=== PATIENT | female | born 1975 | race Caucasian/White ===

== ENCOUNTER 2017-11-29 15:03 | Emergency (ER) | payer MEDICAID ==
[~2017-11-29] VITALS: Ht 157.5 cm; Wt 73.0 kg
[2017-11-29] MEDS ORDERED: CLON0.1T PO (15:20)
[2017-11-29] MEDS ORDERED: HYDROCODONE/ACETAMINOPHEN 5/325MG TABLET PO ONE (16:00)
[2017-11-29 16:40] VITALS: BP 118/67
== END 2017-11-29 16:40 | disposition home or self-care (01) ==
LOC: ER 15:16
DX: M25.561 Pain in right knee (principal); I10 Essential (primary) hypertension
CPT/HCPCS: 99283; Z7610

== ENCOUNTER 2019-09-01 11:46 | Emergency (ER) | payer MEDICAID ==
[~2019-09-01] VITALS: Ht 167.6 cm; Wt 65.0 kg
[~2019-09-01 11:46] MED LIST: CLON0.1T PO
[2019-09-01 22:42] LABS: BASOPHILS % 0.5 % (0.0-2.0); EOSINOPHILS % 0.1 % (0.0-5.0); HEMATOCRIT. 31.3 % (36.0-48.0); HEMOGLOBIN. 10.1 g/dL (12.0-16.0); LYMPHOCYTES % 23.7 % (20.0-50.0); MEAN CORPUSCULAR HEMOGLOBIN 25.6 pg (28.0-32.0); MEAN CORPUSCULAR VOLUME 79.6 fL (81.0-99.0); MEAN PLATELET VOLUME 7.9 fl (7.4-10.4); MONOCYTES % 8.6 % (2.0-8.0); NEUTROPHILS % 67.1 % (40.0-76.0); PLATELET 256 x1000/uL (130-400); RED BLOOD CELL COUNT 3.93 mill/uL (4.2-5.4); RED CELL DISTRIBUTION WIDTH 19.9 % (11.6-14.6)
[2019-09-01 22:50] LABS: CLARITY URINE CLEAR (CLEAR); COLOR URINE YELLOW (YELLOW); KETONES URINE NEGATIVE (NEGATIVE); LEUKOCYTE ESTERASE URINE 1+ (NEGATIVE); NITRITE URINE NEGATIVE (NEGATIVE); OCCULT BLOOD URINE 3+ (NEGATIVE); PROTEIN URINE NEGATIVE (NEGATIVE); SPECIFIC GRAVITY URINE 1.008 (1.005-1.030); UROBILINOGEN URINE 0.2 E.U./dL (0.2-1.0)
[2019-09-02] MEDS ORDERED: CLONAZEPAM 1MG TABLET PO ONE (08:15)
[2019-09-02 12:01] VITALS: BP 132/78
== END 2019-09-02 12:00 | disposition home or self-care (01) ==
LOC: ER 11:46
DX: N93.8 Other specified abnormal uterine and vaginal bleeding (principal); M54.9 Dorsalgia, unspecified; R03.0 Elevated blood-pressure reading, without diagnosis of hypertension; Z59.0 Homelessness; Z87.39 Personal history of other diseases of the musculoskeletal system and connective tissue
CPT/HCPCS: 36415; 81003; 81025; 85025; 99283; Z7610

== ENCOUNTER 2020-05-13 14:20 | Emergency (ER) | payer MEDICAID ==
[~2020-05-13] VITALS: Ht 162.6 cm; Wt 55.0 kg
[2020-05-13] MEDS ORDERED: DIPHENHYDRAMINE 50MG/ML VIAL IM STA (14:53)
[2020-05-13] MEDS ORDERED: DIPHENHYDRAMINE 50MG/ML VIAL ONE (14:56)
[2020-05-13] MEDS ORDERED: HALOPERIDOL LACTATE 5MG/ML VIAL IM ONE ×2 (14:57→15:00)
[2020-05-13] MEDS ORDERED: LORAZEPAM 2MG/ML CPJ ONE (14:58)
[2020-05-13] MEDS ORDERED: LORAZEPAM 2MG/ML CPJ IM PRN ×2 (15:00→15:15)
[2020-05-13 15:47] LABS: BASOPHILS % 1.1 % (0.0-2.0); EOSINOPHILS % 3.7 % (0.0-5.0); HEMATOCRIT. 29.3 % (36.0-48.0); HEMOGLOBIN. 9.2 g/dL (12.0-16.0); LYMPHOCYTES % 36.3 % (20.0-50.0); MEAN CORPUSCULAR HEMOGLOBIN 23.2 pg (28.0-32.0); MEAN CORPUSCULAR VOLUME 73.9 fL (81.0-99.0); MEAN PLATELET VOLUME 7.8 fl (7.4-10.4); MONOCYTES % 10.7 % (2.0-8.0); NEUTROPHILS % 48.2 % (40.0-76.0); PLATELET 391 x1000/uL (130-400); RED BLOOD CELL COUNT 3.96 mill/uL (4.2-5.4); RED CELL DISTRIBUTION WIDTH 20.9 % (11.6-14.6)
[2020-05-13 15:51] LABS: CHLORIDE 109 mEq/L (98-107)
[2020-05-13 15:54] LABS: ETHANOL BLOOD 295 mg/dL
[2020-05-13 16:07] LABS: HCG SCREEN NEGATIVE
[2020-05-13 16:19] LABS: PROTHROMBIN TIME 10.2 sec (9.6-11.0)
[2020-05-13 17:38] LABS: CLARITY URINE CLEAR (CLEAR); COLOR URINE YELLOW (YELLOW); KETONES URINE NEGATIVE (NEGATIVE); LEUKOCYTE ESTERASE URINE 1+ (NEGATIVE); NITRITE URINE NEGATIVE (NEGATIVE); OCCULT BLOOD URINE NEGATIVE (NEGATIVE); PROTEIN URINE 1+ (NEGATIVE); SPECIFIC GRAVITY URINE 1.015 (1.005-1.030)
[2020-05-13 17:51] LABS: *BARBITURATES SCREEN URINE NEGATIVE (NEGATIVE); METHADONE URINE SCREEN NEGATIVE (NEGATIVE)
[2020-05-13 17:52] LABS: CANNABINOID URINE SCREEN NEGATIVE (NEGATIVE); OPIATES URINE SCREEN NEGATIVE (NEGATIVE); PHENCYCLIDINE URINE SCREEN NEGATIVE (NEGATIVE)
[2020-05-13 17:54] LABS: *AMPHETAMINES SCREEN URINE PRESUMTIVE POSITIVE (NEGATIVE); *BENZODIAZEPINES SCREEN URINE PRESUMTIVE POSITIVE (NEGATIVE); *COCAINE SCREEN URINE PRESUMTIVE POSITIVE (NEGATIVE)
[2020-05-13] MEDS ORDERED: KCL 20MEQ/100ML PREMIX 100 ML IV ONE (18:00)
[2020-05-13] MEDS ORDERED: SODIUM CHLORIDE 0.9% 1,000 ML IV ONE (18:00)
[2020-05-13 23:37] LABS: CHLORIDE 111 mEq/L (98-107)
[2020-05-13 23:41] LABS: ETHANOL BLOOD 73 mg/dL
[2020-05-14] MEDS ORDERED: KCL 20MEQ/100ML PREMIX 100 ML IV NR (03:00)
[2020-05-14] MEDS ORDERED: ACETAMINOPHEN 325MG TABLET PO ONE (15:00)
[2020-05-14 15:09] VITALS: BP 121/81
== END 2020-05-14 15:32 | disposition home or self-care (01) ==
LOC: ER 14:20
DX: F14.188 Cocaine abuse with other cocaine-induced disorder (principal); F15.188 Other stimulant abuse with other stimulant-induced disorder; F16.188 Hallucinogen abuse with other hallucinogen-induced disorder; Z11.59 Encounter for screening for other viral diseases; F10.129 Alcohol abuse with intoxication, unspecified; Y90.8 Blood alcohol level of 240 mg/100 ml or more; F91.8 Other conduct disorders; E87.6 Hypokalemia; E87.2 Acidosis; R45.1 Restlessness and agitation; Z98.84 Bariatric surgery status; Z59.0 Homelessness
CPT/HCPCS: 36415; 70450; 80053; 80305; 80320; 80329; 81003; 82140; 82962; 83605; 83690; 84443; 84703; 85025; 85610; 87635; 93005; 96361; 96365; 96366; 96367; 96372; 99285; C9803; J1200; J1630; J2060; J3480; J7030; G0480

== ENCOUNTER 2021-05-28 11:22 | Emergency (ER) | payer MEDICAID | END 2021-05-28 12:49 | disposition left against medical advice (07) | LOC: ER 12:02 | DX: Z76.0 Encounter for issue of repeat prescription (principal); Z53.21 Procedure and treatment not carried out due to patient leaving prior to being seen by health care provider ==

== ENCOUNTER 2021-05-28 13:07 | Emergency (ER) | payer MEDICAID ==
[~2021-05-28] VITALS: Ht 160 cm; Wt 60.0 kg
[2021-05-28 13:24] VITALS: BP 107/71
[2021-05-28] MEDS ORDERED: ACETAMINOPHEN 325MG TABLET PO STA (14:23)
== END 2021-05-28 16:25 | disposition left against medical advice (07) ==
LOC: ER 13:33
DX: F19.10 Other psychoactive substance abuse, uncomplicated (principal); F41.9 Anxiety disorder, unspecified; F20.9 Schizophrenia, unspecified; F10.229 Alcohol dependence with intoxication, unspecified; Y90.0 Blood alcohol level of less than 20 mg/100 ml
CPT/HCPCS: 99282

== ENCOUNTER 2021-06-08 07:50 | Emergency (ER) | payer MEDICAID ==
[~2021-06-08] VITALS: Ht 157.5 cm; Wt 50.0 kg
[2021-06-08 09:17] LABS: BASOPHILS % 1.1 % (0.0-2.0); EOSINOPHILS % 4.6 % (0.0-5.0); HEMATOCRIT. 36.7 % (36.0-48.0); HEMOGLOBIN. 11.6 g/dL (12.0-16.0); LYMPHOCYTES % 26.7 % (20.0-50.0); MEAN CORPUSCULAR VOLUME 91.7 fL (81.0-99.0); MEAN PLATELET VOLUME 7.7 fl (7.4-10.4); MONOCYTES % 13.3 % (2.0-8.0); NEUTROPHILS % 54.3 % (40.0-76.0); PLATELET 311 x1000/uL (130-400); RED BLOOD CELL COUNT 4.01 mill/uL (4.2-5.4); RED CELL DISTRIBUTION WIDTH 17.3 % (11.6-14.6)
[2021-06-08 09:26] LABS: CHLORIDE 113 mEq/L (98-107)
[2021-06-08 09:30] LABS: ETHANOL BLOOD 102 mg/dL
[2021-06-08 10:15] VITALS: BP 105/89
== END 2021-06-08 11:37 | disposition home or self-care (01) ==
LOC: ER 07:59
DX: F10.229 Alcohol dependence with intoxication, unspecified (principal); Y90.8 Blood alcohol level of 240 mg/100 ml or more; R03.0 Elevated blood-pressure reading, without diagnosis of hypertension; E03.9 Hypothyroidism, unspecified; F20.89 Other schizophrenia; Z91.81 History of falling
CPT/HCPCS: 36415; 80053; 80320; 85025; 99284; G0480

== ENCOUNTER 2021-06-18 20:11 | Emergency (ER) | payer MEDICAID ==
[~2021-06-18] VITALS: Ht 167.6 cm; Wt 73.0 kg
[2021-06-18 23:20] LABS: EOSINOPHILS % 2.9 % (0.0-5.0); HEMATOCRIT. 39.7 % (36.0-48.0); HEMOGLOBIN. 12.5 g/dL (12.0-16.0); LYMPHOCYTES % 37.9 % (20.0-50.0); MEAN CORPUSCULAR HEMOGLOBIN 28.9 pg (28.0-32.0); MEAN CORPUSCULAR VOLUME 91.7 fL (81.0-99.0); MEAN PLATELET VOLUME 8.1 fl (7.4-10.4); MONOCYTES % 13.5 % (2.0-8.0); NEUTROPHILS % 44.7 % (40.0-76.0); PLATELET 244 x1000/uL (130-400); RED BLOOD CELL COUNT 4.33 mill/uL (4.2-5.4); RED CELL DISTRIBUTION WIDTH 17.2 % (11.6-14.6)
[2021-06-18 23:26] LABS: CHLORIDE 106 mEq/L (98-107)
[2021-06-18 23:30] LABS: ETHANOL BLOOD 210 mg/dL
[2021-06-18 23:36] LABS: CLARITY URINE CLEAR (CLEAR); COLOR URINE YELLOW (YELLOW); KETONES URINE NEGATIVE (NEGATIVE); LEUKOCYTE ESTERASE URINE TRACE (NEGATIVE); NITRITE URINE NEGATIVE (NEGATIVE); OCCULT BLOOD URINE NEGATIVE (NEGATIVE); PH URINE 7.5 (4.5-8.0); PROTEIN URINE NEGATIVE (NEGATIVE); SPECIFIC GRAVITY URINE 1.009 (1.005-1.030); UROBILINOGEN URINE 0.2 E.U./dL (0.2-1.0)
[2021-06-18 23:53] LABS: *BARBITURATES SCREEN URINE NEGATIVE (NEGATIVE); *BENZODIAZEPINES SCREEN URINE NEGATIVE (NEGATIVE); *COCAINE SCREEN URINE NEGATIVE (NEGATIVE); CANNABINOID URINE SCREEN NEGATIVE (NEGATIVE); METHADONE URINE SCREEN NEGATIVE (NEGATIVE); OPIATES URINE SCREEN NEGATIVE (NEGATIVE); PHENCYCLIDINE URINE SCREEN NEGATIVE (NEGATIVE)
[2021-06-19 00:08] LABS: *AMPHETAMINES SCREEN URINE PRESUMTIVE POSITIVE (NEGATIVE)
[2021-06-19 00:42] LABS: HCG SCREEN NEGATIVE
[2021-06-19] MEDS ORDERED: LORAZEPAM 0.5MG TABLET PO ONE (02:30)
[2021-06-19] MEDS: SERTRALINE HCL 50MG TABLET PO SCH (09:33)
[2021-06-19] MEDS: OLANZAPINE 5MG TABLET PO SCH ×2 (09:33→18:56)
[2021-06-19] MEDS ORDERED: LORAZEPAM 1MG TABLET PO ONE (18:30)
[2021-06-20] MEDS ORDERED: LORAZEPAM 1MG TABLET PO ONE (08:45)
[2021-06-20] MEDS: OLANZAPINE 5MG TABLET PO SCH ×2 (08:46→19:16)
[2021-06-20] MEDS ORDERED: IBUPROFEN 400MG TABLET PO ONE (10:15)
[2021-06-20] MEDS: SERTRALINE HCL 50MG TABLET PO SCH (15:55)
[2021-06-21 04:17] VITALS: BP 119/65
== END 2021-06-21 04:34 ==
LOC: ER 20:11
DX: R45.851 Suicidal ideations (principal); F15.10 Other stimulant abuse, uncomplicated; F10.10 Alcohol abuse, uncomplicated; F43.21 Adjustment disorder with depressed mood; R45.1 Restlessness and agitation; F20.9 Schizophrenia, unspecified; Z20.822 Contact with and (suspected) exposure to COVID-19; Y90.7 Blood alcohol level of 200-239 mg/100 ml; S00.432A Contusion of left ear, initial encounter; X58.XXXA Exposure to other specified factors, initial encounter; Y93.89 Activity, other specified; Y92.89 Other specified places as the place of occurrence of the external cause; Z75.1 Person awaiting admission to adequate facility elsewhere; Z59.00 Homelessness unspecified
CPT/HCPCS: 36415; 80053; 80305; 80320; 81003; 82962; 85025; 99285; G0480

== ENCOUNTER 2022-07-07 17:38 | Inpatient (IN) | payer MEDICAID ==
[~2022-07-07] VITALS: Ht 160 cm; Wt 63.5 kg
[2022-07-07] MEDS ORDERED: LORAZEPAM 1MG TABLET PO ONE (19:15)
[2022-07-07 19:54] LABS: *AMPHETAMINES SCREEN URINE NEGATIVE (NEGATIVE); *BARBITURATES SCREEN URINE NEGATIVE (NEGATIVE); *BENZODIAZEPINES SCREEN URINE NEGATIVE (NEGATIVE); *COCAINE SCREEN URINE NEGATIVE (NEGATIVE); CANNABINOID URINE SCREEN NEGATIVE (NEGATIVE); METHADONE URINE SCREEN NEGATIVE (NEGATIVE); OPIATES URINE SCREEN NEGATIVE (NEGATIVE); PHENCYCLIDINE URINE SCREEN NEGATIVE (NEGATIVE)
[2022-07-07 20:20] LABS: BASOPHILS % 0.4 % (0.0-2.0); EOSINOPHILS % 2.3 % (0.0-5.0); HEMATOCRIT. 33.5 % (36.0-48.0); HEMOGLOBIN. 10.7 g/dL (12.0-16.0); LYMPHOCYTES % 37.1 % (20.0-50.0); MEAN CORPUSCULAR HEMOGLOBIN 27.1 pg (28.0-32.0); MEAN CORPUSCULAR VOLUME 85.1 fL (81.0-99.0); MEAN PLATELET VOLUME 8.9 fl (7.4-10.4); NEUTROPHILS % 48.2 % (40.0-76.0); PLATELET 302 x1000/uL (130-400); RED BLOOD CELL COUNT 3.94 mill/uL (4.2-5.4); RED CELL DISTRIBUTION WIDTH 20.9 % (11.6-14.6)
[2022-07-07 20:34] LABS: HCG SCREEN NEGATIVE
[2022-07-07 20:38] LABS: CHLORIDE 107 mEq/L (98-107)
[2022-07-07 20:55] LABS: ETHANOL BLOOD < 10 mg/dL
[2022-07-07] MEDS ORDERED: CEFTRIAXONE 1 G PREMIX 50 ML IV ONE (23:45)
[2022-07-07] MEDS ORDERED: METRONIDAZOLE 500 MG PREMIX 100 ML IV ONE (23:45)
[2022-07-08] MEDS ORDERED: ACETAMINOPHEN 325MG TABLET PO ONE (00:30)
[2022-07-08] MEDS ORDERED: LORAZEPAM 1MG TABLET PO ONE (08:30)
[2022-07-08] MEDS ORDERED: CLONIDINE 0.1MG TABLET PO PRN (17:00)
[2022-07-08] MEDS: DEXT 5%/0.45% NACL 1000ML 1,000 ML IV SCH (18:34)
[2022-07-08] MEDS: METRONIDAZOLE 500MG TABLET PO SCH (22:00)
[2022-07-08] MEDS: CEFTRIAXONE 1,000 MG in DEXTROSE 5% WATER 50 ML IV SCH (22:30)
[2022-07-09] MEDS ORDERED: CEFTRIAXONE 1 G PREMIX 50 ML IV SCH (00:05)
[2022-07-09] MEDS: DEXT 5%/0.45% NACL 1000ML 1,000 ML IV SCH ×3 (01:45→21:00)
[2022-07-09] MEDS: METRONIDAZOLE 500MG TABLET PO SCH ×3 (06:26→21:47)
[2022-07-09 09:48] LABS: BASOPHILS % 0.7 % (0.0-2.0); EOSINOPHILS % 2.4 % (0.0-5.0); HEMATOCRIT. 32.9 % (36.0-48.0); HEMOGLOBIN. 10.6 g/dL (12.0-16.0); LYMPHOCYTES % 25.8 % (20.0-50.0); MEAN CORPUSCULAR HEMOGLOBIN 27.8 pg (28.0-32.0); MEAN CORPUSCULAR VOLUME 86.3 fL (81.0-99.0); MEAN PLATELET VOLUME 8.8 fl (7.4-10.4); MONOCYTES % 8.3 % (2.0-8.0); NEUTROPHILS % 62.8 % (40.0-76.0); PLATELET 280 x1000/uL (130-400); RED BLOOD CELL COUNT 3.81 mill/uL (4.2-5.4); RED CELL DISTRIBUTION WIDTH 20.7 % (11.6-14.6)
[2022-07-09 09:55] LABS: PROTHROMBIN TIME 10.8 sec (9.6-11.0)
[2022-07-09 10:00] LABS: CHLORIDE 104 mEq/L (98-107)
[2022-07-09 10:04] LABS: TOTAL IRON BINDING CAPACITY 488 ug/dL (250-450)
[2022-07-09 10:35] LABS: FERRITIN 8 ng/mL (10-291)
[2022-07-09 10:58] LABS: VITAMIN B12 SERUM 363 pg/mL (211-911)
[2022-07-09] MEDS ORDERED: QUETIAPINE FUMARATE 50MG TABLET PO NR (12:00)
[2022-07-09] MEDS: IRON SUCROSE COMPLEX 100 MG/5 ML ML IV SCH (13:00)
[2022-07-09 15:27] LABS: FOLIC ACID (FOLATE) SERUM > 20.00 ng/mL (>5.38)
[2022-07-09] MEDS: ALPRAZOLAM 0.25 MG TABLET PO PRN (18:56)
[2022-07-09 19:00] VITALS: BP 105/62
[2022-07-09 20:00] VITALS: BP 105/73
[2022-07-09] MEDS ORDERED: QUETIAPINE FUMARATE 25MG TABLET PO SCH (21:00)
[2022-07-09] MEDS: DULOXETINE HCL 30MG DR CAPSULE PO SCH (21:47)
[2022-07-09] MEDS: CEFTRIAXONE 1,000 MG in DEXTROSE 5% WATER 50 ML IV SCH (22:11)
[2022-07-09] MEDS: ACETAMINOPHEN 325MG TABLET PO PRN (22:54)
[2022-07-09 23:51] VITALS: BP 96/52
[2022-07-10] MEDS: DEXT 5%/0.45% NACL 1000ML 1,000 ML IV SCH ×3 (01:00→17:00)
[2022-07-10 04:00] VITALS: BP 114/69
[2022-07-10] MEDS: METRONIDAZOLE 500MG TABLET PO SCH ×3 (06:26→20:02)
[2022-07-10 07:55] LABS: BASOPHILS % 0.5 % (0.0-2.0); EOSINOPHILS % 2.6 % (0.0-5.0); HEMATOCRIT. 35.5 % (36.0-48.0); HEMOGLOBIN. 11.4 g/dL (12.0-16.0); LYMPHOCYTES % 12.6 % (20.0-50.0); MEAN CORPUSCULAR HEMOGLOBIN 27.8 pg (28.0-32.0); MEAN CORPUSCULAR VOLUME 86.8 fL (81.0-99.0); MONOCYTES % 13.5 % (2.0-8.0); NEUTROPHILS % 70.8 % (40.0-76.0); PLATELET 263 x1000/uL (130-400); RED BLOOD CELL COUNT 4.09 mill/uL (4.2-5.4); RED CELL DISTRIBUTION WIDTH 21.4 % (11.6-14.6)
[2022-07-10] MEDS: QUETIAPINE FUMARATE 50MG TABLET PO SCH ×2 (07:58→20:02)
[2022-07-10 08:00] VITALS: BP 114/71
[2022-07-10] MEDS: DULOXETINE HCL 30MG DR CAPSULE PO SCH ×2 (08:00→20:02)
[2022-07-10] MEDS: ALPRAZOLAM 0.25 MG TABLET PO PRN (09:59)
[2022-07-10] MEDS: IRON SUCROSE COMPLEX 100 MG/5 ML ML IV SCH (11:30)
[2022-07-10 12:00] VITALS: BP 115/74
[2022-07-10 12:09] LABS: CHLORIDE 102 mEq/L (98-107)
[2022-07-10 16:00] VITALS: BP 114/72
[2022-07-10] MEDS ORDERED: QUET50TA PO ×2 (16:03)
[2022-07-10] MEDS ORDERED: DULO30CA2 PO (16:03)
[2022-07-10] MEDS ORDERED: METR-167 PO (16:03)
[2022-07-10] MEDS: ACETAMINOPHEN 325MG TABLET PO PRN (19:57)
[2022-07-10 20:00] VITALS: BP 106/71
[2022-07-10] MEDS: CEFTRIAXONE 1,000 MG in DEXTROSE 5% WATER 50 ML IV SCH (20:05)
[2022-07-11] VITALS: BP 107/64
[2022-07-11] MEDS: DEXT 5%/0.45% NACL 1000ML 1,000 ML IV SCH ×3 (00:08→17:20)
[2022-07-11 04:00] VITALS: BP 103/70
[2022-07-11] MEDS: METRONIDAZOLE 500MG TABLET PO SCH ×3 (04:12→19:53)
[2022-07-11 08:00] VITALS: BP 110/63
[2022-07-11] MEDS: ACETAMINOPHEN 325MG TABLET PO PRN ×3 (08:09→19:53)
[2022-07-11] MEDS: DULOXETINE HCL 30MG DR CAPSULE PO SCH ×2 (08:09→19:53)
[2022-07-11] MEDS: QUETIAPINE FUMARATE 50MG TABLET PO SCH ×2 (08:09→19:53)
[2022-07-11] MEDS: CLONAZEPAM 0.5MG TABLET PO PRN ×2 (08:12→18:55)
[2022-07-11 08:56] LABS: BASOPHILS % 0.9 % (0.0-2.0); EOSINOPHILS % 1.7 % (0.0-5.0); HEMATOCRIT. 35.9 % (36.0-48.0); HEMOGLOBIN. 11.1 g/dL (12.0-16.0); LYMPHOCYTES % 17.5 % (20.0-50.0); MEAN CORPUSCULAR HEMOGLOBIN 27.5 pg (28.0-32.0); MEAN CORPUSCULAR VOLUME 88.7 fL (81.0-99.0); MEAN PLATELET VOLUME 8.7 fl (7.4-10.4); MONOCYTES % 13.3 % (2.0-8.0); NEUTROPHILS % 66.6 % (40.0-76.0); PLATELET 267 x1000/uL (130-400); RED BLOOD CELL COUNT 4.05 mill/uL (4.2-5.4); RED CELL DISTRIBUTION WIDTH 21.9 % (11.6-14.6)
[2022-07-11 12:00] VITALS: BP 116/71
[2022-07-11 12:14] LABS: CHLORIDE 102 mEq/L (98-107)
[2022-07-11] MEDS: LEVOFLOXACIN 250MG TABLET PO SCH (12:59)
[2022-07-11 13:30] LABS: CLARITY URINE CLEAR (CLEAR); COLOR URINE YELLOW (YELLOW); KETONES URINE NEGATIVE (NEGATIVE); LEUKOCYTE ESTERASE URINE NEGATIVE (NEGATIVE); NITRITE URINE NEGATIVE (NEGATIVE); OCCULT BLOOD URINE NEGATIVE (NEGATIVE); PROTEIN URINE NEGATIVE (NEGATIVE); SPECIFIC GRAVITY URINE 1.016 (1.005-1.030); UROBILINOGEN URINE 0.2 E.U./dL (0.2-1.0)
[2022-07-11] MEDS: ALPRAZOLAM 0.25 MG TABLET PO PRN ×2 (15:01→19:53)
[2022-07-11 16:00] VITALS: BP 90/68
[2022-07-11 20:00] VITALS: BP 117/70
[2022-07-12] VITALS: BP 106/68
[2022-07-12] MEDS: DEXT 5%/0.45% NACL 1000ML 1,000 ML IV SCH ×3 (00:14→16:36)
[2022-07-12 04:00] VITALS: BP 111/75
[2022-07-12] MEDS: ACETAMINOPHEN 325MG TABLET PO PRN ×3 (04:04→19:03)
[2022-07-12] MEDS: METRONIDAZOLE 500MG TABLET PO SCH ×3 (04:18→21:22)
[2022-07-12 07:20] LABS: HEMATOCRIT. 31.7 % (36.0-48.0); HEMOGLOBIN. 10.4 g/dL (12.0-16.0); PLATELET 231 x1000/uL (130-400); RED BLOOD CELL COUNT 3.72 mill/uL (4.2-5.4); RED CELL DISTRIBUTION WIDTH 21.3 % (11.6-14.6)
[2022-07-12 07:55] LABS: CHLORIDE 105 mEq/L (98-107)
[2022-07-12 08:06] VITALS: BP 101/60
[2022-07-12] MEDS: DULOXETINE HCL 30MG DR CAPSULE PO SCH ×2 (09:06→21:22)
[2022-07-12] MEDS: QUETIAPINE FUMARATE 50MG TABLET PO SCH ×2 (09:06→21:23)
[2022-07-12] MEDS: ALPRAZOLAM 0.25 MG TABLET PO PRN ×2 (12:11→19:03)
[2022-07-12] MEDS: CLONAZEPAM 0.5MG TABLET PO PRN ×2 (12:11→21:30)
[2022-07-12] MEDS: LEVOFLOXACIN 250MG TABLET PO SCH (12:12)
[2022-07-12 14:48] LABS: PLATELET ESTIMATE NORMAL
[2022-07-12 20:00] VITALS: BP 99/58
[2022-07-12] MEDS: BENZONATATE 100MG CAPSULE PO PRN (21:22)
[2022-07-13] VITALS: BP 93/52
[2022-07-13 04:00] VITALS: BP 96/64
[2022-07-13] MEDS: METRONIDAZOLE 500MG TABLET PO SCH ×3 (06:11→22:26)
[2022-07-13] MEDS: CLONAZEPAM 0.5MG TABLET PO PRN ×2 (06:23→17:47)
[2022-07-13] MEDS: ACETAMINOPHEN 325MG TABLET PO PRN (06:23)
[2022-07-13 08:29] VITALS: BP 101/61
[2022-07-13] MEDS: DULOXETINE HCL 30MG DR CAPSULE PO SCH ×2 (09:28→20:26)
[2022-07-13] MEDS: QUETIAPINE FUMARATE 50MG TABLET PO SCH ×2 (09:29→20:26)
[2022-07-13] MEDS: LEVOFLOXACIN 250MG TABLET PO SCH (11:12)
[2022-07-13] MEDS: ALPRAZOLAM 0.25 MG TABLET PO PRN (11:13)
[2022-07-13] MEDS: BENZONATATE 100MG CAPSULE PO PRN (11:13)
[2022-07-13 11:21] LABS: HEMATOCRIT. 32.9 % (36.0-48.0); HEMOGLOBIN. 10.5 g/dL (12.0-16.0); MEAN CORPUSCULAR HEMOGLOBIN 27.6 pg (28.0-32.0); MEAN CORPUSCULAR VOLUME 86.1 fL (81.0-99.0); MEAN PLATELET VOLUME 9.1 fl (7.4-10.4); PLATELET 225 x1000/uL (130-400); RED BLOOD CELL COUNT 3.82 mill/uL (4.2-5.4); RED CELL DISTRIBUTION WIDTH 21.6 % (11.6-14.6)
[2022-07-13 11:30] LABS: CHLORIDE 107 mEq/L (98-107)
[2022-07-13 12:11] VITALS: BP 98/64
[2022-07-13 13:39] LABS: PLATELET ESTIMATE NORMAL
[2022-07-14] VITALS (7 sets, daily range): BP systolic 91–98; BP diastolic 43–71
[2022-07-14] MEDS: DEXT 5%/0.45% NACL 1000ML 1,000 ML IV SCH ×4 (01:00→17:05)
[2022-07-14] MEDS: BENZONATATE 100MG CAPSULE PO PRN ×2 (04:13→13:23)
[2022-07-14] MEDS: METRONIDAZOLE 500MG TABLET PO SCH ×3 (05:26→22:14)
[2022-07-14] MEDS: QUETIAPINE FUMARATE 50MG TABLET PO SCH ×2 (09:17→22:14)
[2022-07-14] MEDS: DULOXETINE HCL 30MG DR CAPSULE PO SCH ×2 (09:17→22:13)
[2022-07-14] MEDS: CLONAZEPAM 0.5MG TABLET PO PRN (09:25)
[2022-07-14] MEDS: LEVOFLOXACIN 250MG TABLET PO SCH (12:00)
[2022-07-14] MEDS ORDERED: POTASSIUM CHLORIDE 20MEQ TABLET SR PO NR (12:15)
[2022-07-14] MEDS ORDERED: ALPRAZOLAM 0.5 MG TABLET PO NR (16:45)
[2022-07-15] VITALS: BP 90/49
[2022-07-15] MEDS: DEXT 5%/0.45% NACL 1000ML 1,000 ML IV SCH ×2 (01:00→10:44)
[2022-07-15 04:00] VITALS: BP 88/57
[2022-07-15] MEDS: METRONIDAZOLE 500MG TABLET PO SCH (05:56)
[2022-07-15] MEDS: BENZONATATE 100MG CAPSULE PO PRN ×2 (06:33→15:14)
[2022-07-15 08:00] VITALS: BP 106/54
[2022-07-15] MEDS: DULOXETINE HCL 30MG DR CAPSULE PO SCH ×2 (08:38→21:36)
[2022-07-15] MEDS: QUETIAPINE FUMARATE 50MG TABLET PO SCH ×2 (08:39→21:35)
[2022-07-15] MEDS: CLONAZEPAM 0.5MG TABLET PO PRN (08:52)
[2022-07-15] MEDS: LEVOFLOXACIN 250MG TABLET PO SCH (10:43)
[2022-07-15 12:00] VITALS: BP 109/58
[2022-07-15] MEDS: ALPRAZOLAM 0.5 MG TABLET PO PRN (14:11)
[2022-07-15 16:00] VITALS: BP 117/51
[2022-07-15 20:00] VITALS: BP 96/62
[2022-07-16] VITALS: BP 101/74
[2022-07-16] MEDS: ALPRAZOLAM 0.5 MG TABLET PO PRN ×3 (00:03→17:02)
[2022-07-16] MEDS: DEXT 5%/0.45% NACL 1000ML 1,000 ML IV SCH ×3 (00:03→17:02)
[2022-07-16 04:00] VITALS: BP 90/49
[2022-07-16 08:00] VITALS: BP_SYST 101; BP_SYST 129; BP_DIAS 60; BP_DIAS 70
[2022-07-16] MEDS: DULOXETINE HCL 30MG DR CAPSULE PO SCH ×2 (09:10→21:26)
[2022-07-16] MEDS: QUETIAPINE FUMARATE 50MG TABLET PO SCH ×2 (09:10→21:26)
[2022-07-16] MEDS: BENZONATATE 100MG CAPSULE PO PRN (09:10)
[2022-07-16 12:00] VITALS: BP 90/55
[2022-07-16 16:00] VITALS: BP 96/60
[2022-07-16 20:00] VITALS: BP 85/51
[2022-07-17] VITALS: BP_SYST 78; BP_SYST 90; BP_DIAS 43; BP_DIAS 52
[2022-07-17] MEDS: DEXT 5%/0.45% NACL 1000ML 1,000 ML IV SCH ×2 (01:00→09:00)
[2022-07-17 04:00] VITALS: BP 98/60
[2022-07-17 08:00] VITALS: BP 92/60
[2022-07-17] MEDS: DULOXETINE HCL 30MG DR CAPSULE PO SCH ×2 (10:04→20:33)
[2022-07-17] MEDS: QUETIAPINE FUMARATE 50MG TABLET PO SCH ×2 (10:10→20:33)
[2022-07-17] MEDS: BENZONATATE 100MG CAPSULE PO PRN ×2 (10:10→17:32)
[2022-07-17] MEDS: ALPRAZOLAM 0.5 MG TABLET PO PRN ×2 (10:40→18:40)
[2022-07-17 12:00] VITALS: BP 135/73
[2022-07-17 16:00] VITALS: BP 92/47
[2022-07-17] MEDS: LORAZEPAM 1MG TABLET PO PRN (17:33)
[2022-07-17] MEDS: ACETAMINOPHEN 325MG TABLET PO PRN (18:40)
[2022-07-17 20:00] VITALS: BP 88/46
[2022-07-18] VITALS: BP 95/59
[2022-07-18 04:00] VITALS: BP 84/46
[2022-07-18] MEDS: DULOXETINE HCL 30MG DR CAPSULE PO SCH ×2 (07:52→21:26)
[2022-07-18] MEDS: QUETIAPINE FUMARATE 50MG TABLET PO SCH ×2 (07:52→21:27)
[2022-07-18 08:00] VITALS: BP 92/45
[2022-07-18] MEDS: LORAZEPAM 1MG TABLET PO PRN ×2 (09:03→17:54)
[2022-07-18] MEDS: BENZONATATE 100MG CAPSULE PO PRN (09:03)
[2022-07-18 12:00] VITALS: BP 87/59
[2022-07-18] MEDS: ALPRAZOLAM 0.5 MG TABLET PO PRN (12:41)
[2022-07-18 16:00] VITALS: BP 97/61
[2022-07-18] MEDS: ONDANSETRON HCL 4MG/2ML INJ IV PRN (18:19)
[2022-07-18 20:00] VITALS: BP 100/62
[2022-07-19] VITALS: BP 106/67
[2022-07-19 04:00] VITALS: BP 99/63
[2022-07-19] MEDS: ALPRAZOLAM 0.5 MG TABLET PO PRN ×2 (06:53→17:44)
[2022-07-19 08:00] VITALS: BP 100/60
[2022-07-19] MEDS: QUETIAPINE FUMARATE 50MG TABLET PO SCH ×2 (08:02→21:05)
[2022-07-19] MEDS: DULOXETINE HCL 30MG DR CAPSULE PO SCH ×2 (08:02→21:04)
[2022-07-19 12:00] VITALS: BP 93/52
[2022-07-19] MEDS: LORAZEPAM 1MG TABLET PO PRN (12:36)
[2022-07-19 16:00] VITALS: BP 100/59
[2022-07-19] MEDS: ONDANSETRON HCL 4MG/2ML INJ IV PRN (18:35)
[2022-07-19 20:00] VITALS: BP 91/45
[2022-07-19] MEDS: BENZONATATE 100MG CAPSULE PO PRN (21:04)
[2022-07-20] VITALS: BP 93/50
[2022-07-20 04:00] VITALS: BP 84/46
[2022-07-20] MEDS: ALPRAZOLAM 0.5 MG TABLET PO PRN (06:36)
[2022-07-20 08:00] VITALS: BP 90/58
[2022-07-20] MEDS: QUETIAPINE FUMARATE 50MG TABLET PO SCH ×2 (09:03→21:41)
[2022-07-20] MEDS: DULOXETINE HCL 30MG DR CAPSULE PO SCH ×2 (09:03→21:41)
[2022-07-20] MEDS: ONDANSETRON HCL 4MG/2ML INJ IV PRN ×2 (09:52→18:09)
[2022-07-20 12:00] VITALS: BP 91/50
[2022-07-20] MEDS: LORAZEPAM 1MG TABLET PO PRN (15:27)
[2022-07-20 16:00] VITALS: BP 97/60
[2022-07-20] MEDS: ACETAMINOPHEN 325MG TABLET PO PRN (18:10)
[2022-07-20] MEDS ORDERED: NALOXONE HCL 0.4MG/ML VIAL IV PRN (19:30)
[2022-07-20 20:00] VITALS: BP 90/53
[2022-07-20] MEDS: TRAMADOL HCL/ACETAMINOPHEN 37.5/325MG TABLET PO PRN (23:05)
[2022-07-21] VITALS: BP 90/60
[2022-07-21 04:00] VITALS: BP 90/56
[2022-07-21 08:00] VITALS: BP 83/42
[2022-07-21] MEDS: QUETIAPINE FUMARATE 50MG TABLET PO SCH ×2 (09:08→20:31)
[2022-07-21] MEDS: DULOXETINE HCL 30MG DR CAPSULE PO SCH ×2 (09:09→20:30)
[2022-07-21] MEDS: TRAMADOL HCL/ACETAMINOPHEN 37.5/325MG TABLET PO PRN ×2 (10:05→20:30)
[2022-07-21] MEDS: LORAZEPAM 1MG TABLET PO PRN ×2 (10:05→18:03)
[2022-07-21 12:00] VITALS: BP 91/51
[2022-07-21 16:00] VITALS: BP 90/56
[2022-07-21 20:00] VITALS: BP 97/68
[2022-07-22] VITALS: BP 85/76
[2022-07-22] MEDS: BENZONATATE 100MG CAPSULE PO PRN ×2 (00:46→15:13)
[2022-07-22 04:00] VITALS: BP 89/49
[2022-07-22 08:00] VITALS: BP 90/48
[2022-07-22] MEDS: QUETIAPINE FUMARATE 50MG TABLET PO SCH ×2 (09:03→20:52)
[2022-07-22] MEDS: DULOXETINE HCL 30MG DR CAPSULE PO SCH ×2 (09:03→20:52)
[2022-07-22] MEDS: LORAZEPAM 1MG TABLET PO PRN ×2 (09:03→17:09)
[2022-07-22] MEDS: TRAMADOL HCL/ACETAMINOPHEN 37.5/325MG TABLET PO PRN ×2 (11:49→18:00)
[2022-07-22 12:00] VITALS: BP_SYST 87; BP_SYST 95; BP_DIAS 56; BP_DIAS 59
[2022-07-22 16:00] VITALS: BP 112/57
[2022-07-22 20:00] VITALS: BP 110/59
[2022-07-23] VITALS: BP 111/54
[2022-07-23 04:00] VITALS: BP 101/46
[2022-07-23] MEDS: TRAMADOL HCL/ACETAMINOPHEN 37.5/325MG TABLET PO PRN ×2 (06:33→16:23)
[2022-07-23 08:00] VITALS: BP 110/70
[2022-07-23] MEDS: DULOXETINE HCL 30MG DR CAPSULE PO SCH ×2 (09:39→21:47)
[2022-07-23] MEDS: LORAZEPAM 1MG TABLET PO PRN ×2 (09:39→17:27)
[2022-07-23] MEDS: QUETIAPINE FUMARATE 50MG TABLET PO SCH ×2 (11:23→21:48)
[2022-07-23 12:00] VITALS: BP 113/74
[2022-07-23 16:00] VITALS: BP 15/61
[2022-07-23 20:00] VITALS: BP 112/67
[2022-07-24] VITALS: BP 96/54
[2022-07-24] MEDS: BENZONATATE 100MG CAPSULE PO PRN ×2 (02:56→12:57)
[2022-07-24 04:00] VITALS: BP 101/54
[2022-07-24 08:00] VITALS: BP 95/53
[2022-07-24] MEDS: LORAZEPAM 1MG TABLET PO PRN ×2 (09:23→16:50)
[2022-07-24] MEDS: QUETIAPINE FUMARATE 50MG TABLET PO SCH ×2 (09:23→21:26)
[2022-07-24] MEDS: DULOXETINE HCL 30MG DR CAPSULE PO SCH ×2 (09:23→21:26)
[2022-07-24 12:30] VITALS: BP 103/62
[2022-07-24] MEDS: TRAMADOL HCL/ACETAMINOPHEN 37.5/325MG TABLET PO PRN (12:58)
[2022-07-24 20:00] VITALS: BP 107/49
[2022-07-25] VITALS: BP 116/63
[2022-07-25 04:00] VITALS: BP 107/55
[2022-07-25] MEDS: LORAZEPAM 1MG TABLET PO PRN ×2 (05:15→13:19)
[2022-07-25 08:00] VITALS: BP 127/85
[2022-07-25] MEDS: QUETIAPINE FUMARATE 50MG TABLET PO SCH ×2 (08:43→21:18)
[2022-07-25] MEDS: DULOXETINE HCL 30MG DR CAPSULE PO SCH ×2 (08:43→21:20)
[2022-07-25 12:00] VITALS: BP 111/78
[2022-07-25] MEDS: TRAMADOL HCL/ACETAMINOPHEN 37.5/325MG TABLET PO PRN (12:11)
[2022-07-25 16:00] VITALS: BP 116/65
[2022-07-25] MEDS: ACETAMINOPHEN 325MG TABLET PO PRN (17:29)
[2022-07-25 20:02] VITALS: BP 106/59
[2022-07-26] VITALS (7 sets, daily range): BP systolic 96–115; BP diastolic 37–69
[2022-07-26] MEDS: TRAMADOL HCL/ACETAMINOPHEN 37.5/325MG TABLET PO PRN (00:19)
[2022-07-26] MEDS: BENZONATATE 100MG CAPSULE PO PRN ×2 (00:25→20:53)
[2022-07-26] MEDS: LORAZEPAM 1MG TABLET PO PRN ×3 (00:25→19:00)
[2022-07-26] MEDS: DULOXETINE HCL 30MG DR CAPSULE PO SCH ×2 (09:02→20:49)
[2022-07-26] MEDS: QUETIAPINE FUMARATE 50MG TABLET PO SCH ×2 (09:03→20:49)
[2022-07-26] MEDS: ACETAMINOPHEN 325MG TABLET PO PRN ×2 (15:43→20:53)
[2022-07-27 04:00] VITALS: BP 117/68
[2022-07-27] MEDS: LORAZEPAM 1MG TABLET PO PRN ×3 (04:08→22:24)
[2022-07-27 08:00] VITALS: BP 104/65
[2022-07-27] MEDS: QUETIAPINE FUMARATE 50MG TABLET PO SCH ×2 (08:28→20:04)
[2022-07-27] MEDS: DULOXETINE HCL 30MG DR CAPSULE PO SCH ×2 (08:29→20:04)
[2022-07-27 12:00] VITALS: BP 100/50
[2022-07-27] MEDS: ACETAMINOPHEN 325MG TABLET PO PRN (13:14)
[2022-07-27 16:02] VITALS: BP 124/76
[2022-07-27] MEDS: BENZONATATE 100MG CAPSULE PO PRN (17:06)
[2022-07-27] MEDS: HYDROCODONE/ACETAMINOPHEN 5/325MG TABLET PO PRN (17:43)
[2022-07-27] MEDS ORDERED: NALOXONE HCL 0.4MG/ML VIAL IV PRN (17:45)
[2022-07-27 20:00] VITALS: BP 119/69
[2022-07-28] VITALS: BP 106/59
[2022-07-28] MEDS: HYDROCODONE/ACETAMINOPHEN 5/325MG TABLET PO PRN ×5 (00:32→19:58)
[2022-07-28 04:00] VITALS: BP 114/52
[2022-07-28 08:00] VITALS: BP 120/69
[2022-07-28] MEDS: DULOXETINE HCL 30MG DR CAPSULE PO SCH ×2 (08:46→19:55)
[2022-07-28] MEDS: QUETIAPINE FUMARATE 50MG TABLET PO SCH ×2 (08:46→19:55)
[2022-07-28] MEDS: LORAZEPAM 1MG TABLET PO PRN (08:46)
[2022-07-28 12:00] VITALS: BP 118/67
[2022-07-28 16:00] VITALS: BP 12/70
[2022-07-28] MEDS: BENZONATATE 100MG CAPSULE PO PRN (17:13)
[2022-07-28 20:00] VITALS: BP 107/57
[2022-07-29] VITALS: BP 117/76
[2022-07-29] MEDS: HYDROCODONE/ACETAMINOPHEN 5/325MG TABLET PO PRN ×4 (00:32→18:10)
[2022-07-29] MEDS: LORAZEPAM 1MG TABLET PO PRN ×3 (00:33→17:08)
[2022-07-29 04:00] VITALS: BP 123/64
[2022-07-29 08:00] VITALS: BP 130/75
[2022-07-29] MEDS: DULOXETINE HCL 30MG DR CAPSULE PO SCH ×2 (09:21→20:37)
[2022-07-29] MEDS: QUETIAPINE FUMARATE 50MG TABLET PO SCH ×2 (09:22→20:37)
[2022-07-29 12:00] VITALS: BP 122/67
[2022-07-29 16:00] VITALS: BP 119/72
[2022-07-29 20:00] VITALS: BP 127/65
[2022-07-30] VITALS: BP 100/46
[2022-07-30 04:00] VITALS: BP 110/69
[2022-07-30] MEDS: HYDROCODONE/ACETAMINOPHEN 5/325MG TABLET PO PRN ×4 (05:34→21:21)
[2022-07-30 08:00] VITALS: BP 112/64
[2022-07-30] MEDS: DULOXETINE HCL 30MG DR CAPSULE PO SCH ×2 (08:56→21:20)
[2022-07-30] MEDS: QUETIAPINE FUMARATE 50MG TABLET PO SCH ×2 (08:56→21:20)
[2022-07-30] MEDS: LORAZEPAM 1MG TABLET PO PRN ×2 (08:59→17:34)
[2022-07-30 12:00] VITALS: BP 114/62
[2022-07-30 16:00] VITALS: BP 110/62
[2022-07-30 20:00] VITALS: BP 121/73
[2022-07-31] VITALS: BP 108/59
[2022-07-31 04:00] VITALS: BP 111/68
[2022-07-31] MEDS: HYDROCODONE/ACETAMINOPHEN 5/325MG TABLET PO PRN ×3 (06:47→17:18)
[2022-07-31 08:00] VITALS: BP 150/90
[2022-07-31] MEDS: QUETIAPINE FUMARATE 50MG TABLET PO SCH ×2 (09:09→21:31)
[2022-07-31] MEDS: DULOXETINE HCL 30MG DR CAPSULE PO SCH ×2 (09:09→21:30)
[2022-07-31] MEDS: LORAZEPAM 1MG TABLET PO PRN ×2 (09:10→18:09)
[2022-07-31 12:00] VITALS: BP 105/76
[2022-07-31 16:00] VITALS: BP 110/70
[2022-07-31 16:55] LABS: EOSINOPHILS % 3.8 % (0.0-5.0); HEMATOCRIT. 32.3 % (36.0-48.0); HEMOGLOBIN. 10.6 g/dL (12.0-16.0); LYMPHOCYTES % 35.3 % (20.0-50.0); MEAN CORPUSCULAR HEMOGLOBIN 28.3 pg (28.0-32.0); MEAN CORPUSCULAR VOLUME 86.3 fL (81.0-99.0); MEAN PLATELET VOLUME 9.3 fl (7.4-10.4); NEUTROPHILS % 47.9 % (40.0-76.0); PLATELET 287 x1000/uL (130-400); RED BLOOD CELL COUNT 3.74 mill/uL (4.2-5.4); RED CELL DISTRIBUTION WIDTH 21.8 % (11.6-14.6)
[2022-07-31 17:22] LABS: CHLORIDE 103 mEq/L (98-107)
[2022-07-31 20:09] VITALS: BP 113/77
[2022-08-01] VITALS: BP 88/41
[2022-08-01 03:33] VITALS: BP 112/55
[2022-08-01] MEDS: HYDROCODONE/ACETAMINOPHEN 5/325MG TABLET PO PRN ×2 (03:36→09:18)
[2022-08-01 08:00] VITALS: BP 111/60
[2022-08-01] MEDS: QUETIAPINE FUMARATE 50MG TABLET PO SCH (09:17)
[2022-08-01] MEDS: DULOXETINE HCL 30MG DR CAPSULE PO SCH (09:17)
[2022-08-01 10:22] VITALS: BP 111/60
[2022-08-01] MEDS: LORAZEPAM 1MG TABLET PO PRN (12:30)
[2022-08-01] MEDS: ACETAMINOPHEN 325MG TABLET PO PRN (13:23)
== END 2022-08-01 13:39 | DRG 249 ==
LOC: ER 17:38 → EDBEDREQ 07-08 00:37 → MICUSO 07-08 04:23 → 6EST 07-09 16:52 → 7EST 07-13 21:26 → 4WST 07-24 11:21
PROVIDERS: ADMIT Internal Medicine; ATTEND Internal Medicine
DX: K52.9 Noninfective gastroenteritis and colitis, unspecified (principal); U07.1 COVID-19; R45.851 Suicidal ideations; F10.10 Alcohol abuse, uncomplicated; F20.9 Schizophrenia, unspecified; F19.10 Other psychoactive substance abuse, uncomplicated; D50.9 Iron deficiency anemia, unspecified; Z98.84 Bariatric surgery status; Z90.49 Acquired absence of other specified parts of digestive tract; Z59.00 Homelessness unspecified; Z91.14 Patient's other noncompliance with medication regimen
CPT/HCPCS: 36415; 74174; 80048; 80053; 80305; 80307; 80320; 80329; 81003; 82607; 82728; 82746; 83540; 83550; 84443; 84703; 85025; 85044; 86850; 86900; 87426; 97161; 97165; 99285; J0696; J2405; J3490; J7060; G0480

== ENCOUNTER 2022-10-24 10:18 | Emergency (ER) | payer MEDICAID ==
[~2022-10-24] VITALS: Ht 160 cm; Wt 70.0 kg
[~2022-10-24 10:18] MED LIST changes: +DULO30CA2 PO; +METR-167 PO; +QUET50TA PO
[2022-10-24 16:05] LABS: BASOPHILS % 0.6 % (0.0-2.0); EOSINOPHILS % 0.7 % (0.0-5.0); HEMATOCRIT. 41.6 % (36.0-48.0); HEMOGLOBIN. 13.1 g/dL (12.0-16.0); LYMPHOCYTES % 29.3 % (20.0-50.0); MEAN CORPUSCULAR HEMOGLOBIN 27.6 pg (28.0-32.0); MEAN CORPUSCULAR VOLUME 87.3 fL (81.0-99.0); MEAN PLATELET VOLUME 8.1 fl (7.4-10.4); MONOCYTES % 9.2 % (2.0-8.0); NEUTROPHILS % 60.2 % (40.0-76.0); PLATELET 342 x1000/uL (130-400); RED BLOOD CELL COUNT 4.77 mill/uL (4.2-5.4); RED CELL DISTRIBUTION WIDTH 17.1 % (11.6-14.6)
[2022-10-24 16:19] LABS: CHLORIDE 107 mEq/L (98-107)
[2022-10-24 16:25] LABS: ETHANOL BLOOD < 10 mg/dL
[2022-10-24] MEDS ORDERED: ACETAMINOPHEN 325MG TABLET PO NR (17:59)
[2022-10-24] MEDS ORDERED: CIPR1DRO2 EACH EAR (19:03)
[2022-10-24] MEDS ORDERED: NAPR500T7 PO (19:04)
[2022-10-24] MEDS: NEOMYCIN-POLYMYXIN-HYDROCORTISONE 1% OTIC SUSP 10ML EACH EAR SCH (23:48)
[2022-10-25 00:13] LABS: CLARITY URINE CLEAR (CLEAR); COLOR URINE YELLOW (YELLOW); KETONES URINE TRACE (NEGATIVE); LEUKOCYTE ESTERASE URINE NEGATIVE (NEGATIVE); NITRITE URINE NEGATIVE (NEGATIVE); OCCULT BLOOD URINE 2+ (NEGATIVE); PH URINE 6.5 (4.5-8.0); PROTEIN URINE NEGATIVE (NEGATIVE); SPECIFIC GRAVITY URINE 1.019 (1.005-1.030)
[2022-10-25] MEDS: NEOMYCIN-POLYMYXIN-HYDROCORTISONE 1% OTIC SUSP 10ML EACH EAR SCH ×4 (00:17→18:00)
[2022-10-25 02:01] LABS: *BARBITURATES SCREEN URINE NEGATIVE (NEGATIVE); *COCAINE SCREEN URINE NEGATIVE (NEGATIVE); METHADONE URINE SCREEN NEGATIVE (NEGATIVE); OPIATES URINE SCREEN NEGATIVE (NEGATIVE); PHENCYCLIDINE URINE SCREEN NEGATIVE (NEGATIVE)
[2022-10-25 02:04] LABS: *AMPHETAMINES SCREEN URINE PRESUMTIVE POSITIVE (NEGATIVE); *BENZODIAZEPINES SCREEN URINE PRESUMTIVE POSITIVE (NEGATIVE); CANNABINOID URINE SCREEN PRESUMTIVE POSITIVE (NEGATIVE)
[2022-10-25] MEDS: THIAMINE HCL 100MG TABLET PO SCH (13:00)
[2022-10-25] MEDS: FOLIC ACID 1MG TABLET PO SCH (13:00)
[2022-10-25] MEDS: MULTIVITAMINS,THER W-MINERALS TABLET PO SCH (13:00)
[2022-10-25] MEDS: QUETIAPINE FUMARATE 25MG TABLET PO SCH (21:00)
[2022-10-26] MEDS: NEOMYCIN-POLYMYXIN-HYDROCORTISONE 1% OTIC SUSP 10ML EACH EAR SCH ×4 (06:00→18:00)
[2022-10-26] MEDS: QUETIAPINE FUMARATE 25MG TABLET PO SCH ×2 (08:34→21:45)
[2022-10-26] MEDS: FOLIC ACID 1MG TABLET PO SCH (08:34)
[2022-10-26] MEDS: THIAMINE HCL 100MG TABLET PO SCH (08:34)
[2022-10-26] MEDS: MULTIVITAMINS,THER W-MINERALS TABLET PO SCH (08:34)
[2022-10-26] MEDS: LORAZEPAM 2MG/ML CPJ IM PRN (08:35)
[2022-10-27] MEDS: NEOMYCIN-POLYMYXIN-HYDROCORTISONE 1% OTIC SUSP 10ML EACH EAR SCH ×4 (00:05→18:00)
[2022-10-27] MEDS: LORAZEPAM 2MG/ML CPJ IM PRN (05:41)
[2022-10-27] MEDS: THIAMINE HCL 100MG TABLET PO SCH (09:23)
[2022-10-27] MEDS: MULTIVITAMINS,THER W-MINERALS TABLET PO SCH (09:23)
[2022-10-27] MEDS: FOLIC ACID 1MG TABLET PO SCH (09:23)
[2022-10-27] MEDS: QUETIAPINE FUMARATE 25MG TABLET PO SCH ×2 (09:23→21:11)
[2022-10-27] MEDS ORDERED: LORAZEPAM 2MG/ML CPJ IM NR (16:15)
[2022-10-27] MEDS ORDERED: DIPHENHYDRAMINE 50MG/ML VIAL IM NR (16:15)
[2022-10-27] MEDS ORDERED: DIPHENHYDRAMINE 50MG/ML VIAL IM ONE (16:15)
[2022-10-27] MEDS ORDERED: LORAZEPAM 2MG/ML CPJ IM ONE (16:15)
[2022-10-28] MEDS: NEOMYCIN-POLYMYXIN-HYDROCORTISONE 1% OTIC SUSP 10ML EACH EAR SCH ×3 (00:17→12:09)
[2022-10-28] MEDS: LORAZEPAM 2MG/ML CPJ IM PRN ×2 (05:20→17:53)
[2022-10-28] MEDS: FOLIC ACID 1MG TABLET PO SCH (09:35)
[2022-10-28] MEDS: MULTIVITAMINS,THER W-MINERALS TABLET PO SCH (09:35)
[2022-10-28] MEDS: QUETIAPINE FUMARATE 25MG TABLET PO SCH (09:35)
[2022-10-28] MEDS: THIAMINE HCL 100MG TABLET PO SCH (09:35)
[2022-10-28 17:30] VITALS: BP 102/60
== END 2022-10-28 18:54 ==
LOC: ER 10:18
DX: T43.652A Poisoning by methamphetamines intentional self-harm, initial encounter (principal); F15.129 Other stimulant abuse with intoxication, unspecified; F33.0 Major depressive disorder, recurrent, mild; F12.10 Cannabis abuse, uncomplicated; H66.93 Otitis media, unspecified, bilateral; M79.632 Pain in left forearm; Z91.410 Personal history of adult physical and sexual abuse; Y92.89 Other specified places as the place of occurrence of the external cause; Z59.00 Homelessness unspecified; Z20.822 Contact with and (suspected) exposure to COVID-19; Z75.1 Person awaiting admission to adequate facility elsewhere
CPT/HCPCS: 36415; 73090; 80048; 80305; 80307; 80320; 80329; 81003; 85025; 99285; J2060; 87426; C9803; G0480

== ENCOUNTER 2023-05-09 06:14 | Emergency (ER) | payer MEDICAID ==
[~2023-05-09] VITALS: Ht 170.2 cm; Wt 70.0 kg
[~2023-05-09 06:14] MED LIST changes: +CIPR1DRO2 EACH EAR; +NAPR500T7 PO
[2023-05-09 06:30] VITALS: BP 113/82; PULSE 80; RESP 18; TEMP 98.2; O2SAT 99
== END 2023-05-09 08:25 | disposition left against medical advice (07) ==
LOC: ER 06:14
DX: R07.89 Other chest pain (principal); F12.10 Cannabis abuse, uncomplicated; F15.10 Other stimulant abuse, uncomplicated; F13.10 Sedative, hypnotic or anxiolytic abuse, uncomplicated; Z53.21 Procedure and treatment not carried out due to patient leaving prior to being seen by health care provider; Z86.59 Personal history of other mental and behavioral disorders; Z98.890 Other specified postprocedural states
CPT/HCPCS: 93005; 99283

== ENCOUNTER 2023-05-11 09:50 | Emergency (ER) | payer MEDICAID ==
[~2023-05-11] VITALS: Ht 165.1 cm; Wt 64.0 kg
[2023-05-11 09:58] VITALS: O2SAT 97
[2023-05-11] MEDS ORDERED: CEPH500T MT (11:10)
[2023-05-11] MEDS ORDERED: OFLO5DRO4 RIGHT EAR (11:10)
[2023-05-11 11:52] VITALS: BP 129/87; PULSE 78; RESP 19; TEMP 98.6
== END 2023-05-11 11:53 | disposition home or self-care (01) ==
LOC: ER 10:04
DX: H60.91 Unspecified otitis externa, right ear (principal); L03.031 Cellulitis of right toe; Z98.890 Other specified postprocedural states; Z86.59 Personal history of other mental and behavioral disorders
CPT/HCPCS: 73630; 99283